=== PATIENT | female | born 1995 | race Caucasian/White ===

== ENCOUNTER 2018-01-29 11:15 | Emergency (ER) | payer BC ==
--- NOTE | 2018-01-29 12:33 | RAD ---
TWO VIEWS CHEST: HISTORY: Foreign body stuck in throat. FINDINGS: PA and lateral views of the chest are obtained. The lungs are well aerated. No evidence of active i ntrathoracic disease is seen. No evidence of radiopaque foreign body seen along the visualized porti on of the course of the esophagus. IMPRESSION: Unremarkable 2 views chest. No evidence of mediastinal gas or obvious visible radiopaque foreign bod y is seen. POS: [facility]
[2018-01-29 12:35] LABS: Pregnancy Test - Urine (BHCG) Negative (Negative); Pregu Control Background? CLEAR/WHITE (CLR/WHITE); Pregu Control Bar Appear? YES (CONTROL BAR); Specific Gravity 1.013 (1.002-1.036)
--- NOTE | 2018-01-29 12:38 | RAD ---
ABDOMEN 2 VIEWS: HISTORY: Abdominal pain. FINDINGS: Gas and stool are apparent throughout the colon and rectum. Nondilated gas-filled loop of small yuri l overlies the upper abdomen. No differential air fluid levels or evidence of free subdiaphragmatic gas. IMPRESSION: Nonspecific bowel gas pattern. POS: [facility]
[2018-01-29] MEDS ORDERED: Midazolam HCl 2 mg/2 ml Vial ONE (14:19)
[2018-01-29] MEDS ORDERED: Fentanyl 100 MCG/2 ML VIAL ONE (14:20)
--- NOTE | 2018-01-29 15:30 | HP ---
DATE OF SERVICE: 01/29/2018 REASON FOR EVALUATION: Vomiting, persistent feeling of foreign body sensation in the chest. HISTORY OF PRESENT ILLNESS: Ms. Vargas is a 22-year-old female who actually works in [employer]. Her mother called me last night that she has been having about 3 days of feeling of foreign bod y sensation in the chest. She states she ate at [employer] on Wednesday night and did not re ally notice any difficulty with the meal, but on getting home, she felt that something was stuck in h er lower chest area just above the xiphoid. There was a vague discomfort. She proceeded to actually eat normally on and Wednesday, but felt that food in her esophagus and even to the poin t where last night felt like even if she tried to recline, the things would seat back up in the back of her throat. She called me then and she was able to handle her secretions and did not have any sev ere pain or fever. She has had a bowel movement yesterday and I advised her to use and to go o n full liquid diet, just liquids. She states last night, she ultimately threw up everything she had eaten that day. She noticed no overt blood, but did show a little black material there. Her bowel m ovement was smaller than usual, but was without blood or melena. She has had no fever or chills. __ ___ is able to drink liquids, but feels like everything was to come back up in the back of her throa t. She is not spitting. She is handling secretions fine. She states when she lays down or she move s from side to side, she feels that something is shifting in her chest region back and forth. She ordonez s more discomfort today, but not excruciating pain. She has had no fever, chills, dysuria, frequency. She has no abdominal pain or back pain. She has h ad no recent weight loss and not experienced like this in the past. She denies any history of chroni c reflux or indigestion. She is on control shots and has been doing that regularly. She does not have menstrual cycles. PAST MEDICAL HISTORY: Notable for seasonal allergies for which she does not take medicines. PAST SURGICAL HISTORY: Negative. ALLERGIES: None. FAMILY HISTORY: Negative for GI tract malignancies, esophageal or GI problems. REVIEW OF SYSTEMS: Negative for cough, shortness of breath, chest pain, dyspnea on exertion, dysuria , frequency, urgency, rashes, myalgias, arthralgias or weight loss. PHYSICAL EXAMINATION: VITAL SIGNS: Blood pressure is 143/71, pulse 96, respirations 18, temperature 98.5. GENERAL: She is resting comfortably in bed. Her grandmother is in the room. Her is in the room. HEENT: Oropharynx without lesions. NECK: Supple without adenopathy. LUNGS: Clear. HEART: Regular rate and rhythm without clicks or murmurs. ABDOMEN: Soft, nontender. There is no rebound or guarding. There is no upper quadrant pain. EXTREMITIES: Reveal no clubbing, cyanosis or edema. SKIN: Warm and dry. ASSESSMENT: Vague symptoms for 3 days, now of foreign body sensation in the chest region. Although, she has been able to tolerate liquids and actually ate regular food today after this began; however, she ultimately threw everything up last night. It is atypical for foreign body obstruction and usua lly people can handle secretions or liquids even at this point. She maybe a little bit obstipated, b ut has no abdominal pain. I discussed the differential diagnosis either gastroparesis or severe refl ux versus foreign body versus a gastric outlet issue with the patient and family, we will proceed wit h a 2-view chest and upright abdomen now and then make further disposition and after that, we may pro ceed with an EGD today.
--- NOTE | 2018-01-29 18:05 | OP ---
DATE OF PROCEDURE: 01/29/2018 PREOPERATIVE DIAGNOSES: 1. Dysphagia. 2. Chest pain. 3. Vomiting. POSTOPERATIVE DIAGNOSES: 1. Proximal esophagitis characterized by erosions and exudate, biopsied. No overt ulcers or Paola . Differential diagnosis would include mild viral esophagitis. 2. Esophagitis related to recent bolus obstruction in the past, Paola, reflux, eosinophilic esopha gitis. PROCEDURE: Esophagogastroduodenoscopy with biopsy. RECOMMENDATIONS: 1. Await histopathology. 2. Full-liquid diet for the next couple of days. 3. PPI b.i.d. 4. The patient will go home today. ANESTHESIA: General endotracheal anesthesia. PROCEDURE IN DETAIL: After the patient was informed of the risks, benefits, and possible complicatio ns of endoscopy including perforation, reactions to medication, and aspiration, informed consent was obtained. The patient was brought to endoscopy suite, where she was prepped and draped in standard f ashion. Once she was comfortable, she was intubated and airway was secured, bite block was placed in incisural orifice. The endoscope was advanced to the esophagus, stomach, and second and third porti on of duodenum; and it was removed. The esophagus was notable for no foreign bodies, but she had exu date, mild edema, and erosion in the proximal esophagus. There was no characteristic appearance of v iral esophagitis or Paola. Multiple biopsies were obtained. There was no overt stricture. There was no foreign body in the esophagus. The GE junction appeared normal with no evidence of inflammati on. The stomach was entered and found to be normal in forward and retroflexed views. No foreign bod ies or retained food. Duodenum was normal to third portion. The stomach was then re-evaluated after the duodenum was desufflated. Retroflexed views were normal. Esophagus was once again re-evaluated . Decision was made to take some biopsies of the proximal esophagus. Again, no rings or webs or typ ical features of eosinophilic esophagitis were seen. The scope was removed. The patient tolerated t he procedure well with no complications.
[2018-01-29] MEDS ORDERED: PROPOFOL 200 MG/20 ML VIAL ONE (18:10)
[2018-01-29] MEDS ORDERED: Succinylcholine Chloride 20 MG/ML 10 ml SYRINGE FS ONE (18:10)
[2018-01-29] MEDS ORDERED: Lidocaine 1% PF 5 ML VIAL ONE (18:10)
== END 2018-01-29 13:39 | disposition admitted as inpatient to this hospital (09) ==
LOC: ERS 11:15
DX: R07.9 Chest pain, unspecified (principal); R13.10 Dysphagia, unspecified
CPT/HCPCS: 71046; 74019; 81025; 88305; 88312; 88313; J2001; J2250; J2704; J3010